=== PATIENT | female | born 1960 | race Two or more races ===

== ENCOUNTER 2020-06-17 17:41 | Emergency (ER) | payer MEDICAID ==
[~2020-06-17] VITALS: Ht 154.9 cm; Wt 61.2 kg
[2020-06-17] MEDS ORDERED: Oxymetazoline 0.05% Na Spray 30ml NASAL ONE ×2 (17:45→17:48)
--- NOTE | 2020-06-17 18:25 | NUR ---
ED Nurse Note:pt. came from home with nose bleed, pt. is A/Ox4 ambulatory, blood sent to labs
[2020-06-17 18:39] VITALS: BP 180/100
[2020-06-17] MEDS ORDERED: AMOXICILLIN500 MG ORAL (18:49)
[2020-06-17 18:55] LABS: BASOPHILS % (AUTO) 1.5 % (0.0-2.0); EOSINOPHILS % (AUTO) 3.2 % (0.0-3.0); HEMATOCRIT 41.3 % (37.0-47.0); HEMOGLOBIN 13.8 G/DL (12.0-16.0); LYMPHOCYTES % (AUTO) 22.6 % (20.0-45.0); MEAN CORPUSCULAR VOLUME 89 FL (80-99); MONOCYTES % (AUTO) 6.8 % (1.0-10.0); NEUTROPHILS % (AUTO) 65.9 % (45.0-75.0); PLATELET COUNT 223 K/UL (150-450); RED BLOOD COUNT 4.62 M/UL (4.20-5.40); RED CELL DISTRIBUTION WIDTH 12.5 % (11.6-14.8); WHITE BLOOD COUNT 6.9 K/UL (4.8-10.8)
[2020-06-17 18:58] LABS: CALCIUM 8.8 MG/DL (8.5-10.1)
[2020-06-17 19:03] LABS: ALBUMIN 3.9 G/DL (3.4-5.0); ALBUMIN/GLOBULIN RATIO 0.9 (1.0-2.7); BILIRUBIN,TOTAL 0.4 MG/DL (0.2-1.0)
--- NOTE | 2020-06-17 19:07 | NUR ---
HAND-OFF: Report given to Rivas.
--- NOTE | 2020-06-17 19:20 | NUR ---
PT RECEIVED AND REPORT FROM DAY RN NO FURTHER NOSE BLEEDING AOX4 RESP EVEN
--- NOTE | 2020-06-17 20:08 | NUR ---
DR DEE TO EXAM
[2020-06-17 21:08] VITALS: BP 128/88
--- NOTE | 2020-06-18 14:24 | Emergency Room Report ---
History of Present Illness General Chief Complaint: Nosebleed Source: Patient, EMS Present Illness HPI Patient is a 59-year-old female presents for increased nosebleed. Increased bleeding from the left nare. Onset of symptoms approximate 1 hour prior to arrival. Had not been having any recent fever. Episodic nosebleeds in the past. Reports having attempted to clean her nose prior to onset of bleeding. P rior history of hypertension. Does not take anticoagulation. Allergies: Coded Allergies: No Known Allergies (Unverified , 06/17/20) COVID-19 Screening Contact w/high risk pt: No Experienced COVID-19 symptoms?: No COVID-19 Testing performed VEGETABLE II FARMWORKER: No Patient History Past Medical History: see triage record Reviewed Nursing Documentation: PMH: Agreed; PSxH: Agreed Nursing Documentation-PMH Hx Cardiac Problems: Yes Hx Hypertension: Yes Review of Systems All Other Systems: negative except mentioned in HPI Physical Exam Vital Signs Date Time Temp Pulse Resp B/P (MAP) Pulse Ox O2 Delivery O2 Flow Rate FiO2 06/17/20 17:33 97.7 88 19 180/100 (126) 99 Room Air Sp02 EP Interpretation: reviewed, normal General Appearance: normal inspection, well appearing, no apparent distress, alert, GCS 15, non-toxic Head: atraumatic ENT: hearing grossly normal, normal voice, other - Bleeding from left anterior nasal septum. Neck: normal inspection, full range of motion, supple, no bony tend Respiratory: normal inspection, lungs clear, normal breath sounds, no respiratory distress, no retraction, no wheezing Cardiovascular #1: regular rate, rhythm, no edema Gastrointestinal: normal inspection, normal bowel sounds, non tender, soft, no guarding, no hernia Genitourinary: no CVA tenderness Musculoskeletal: normal inspection, back normal, normal range of motion Neurologic: alert, motor strength/tone normal, sales store checker III-XII nml as tested, oriented x3, responsive, speech normal, normal inspection Psychiatric: normal inspection, judgement/insight normal, mood/affect normal Medical Decision Making Diagnostic Impression: Primary Impression: Epistaxis ER Course Patient presented for epistaxis. Differential diagnosis includes not limited to anterior epistaxis, posterior epistaxis, coagulopathy, anemia among others. Because of complexity of patient's case laboratory tests and imaging studies were ordered. Patient was noted to have persistent epistaxis despite compression. Afrin was instilled to the left nare. A 7 cm nasal packing was placed in the left nare. Throughout course bleeding resolved. Patient was advised to have packing removed in 2 days. She is advised to return to the emergency department if she cannot be seen by her primary care physician. The patient was given IV fluids and was noted to have stable vital signs. This medical record is generated with [employer] park keeper software. There may be some park keeper discrepancies related to use of this software Labs Test 06/17/20 18:05 White Blood Count 6.9 K/UL (4.8-10.8) Red Blood Count 4.62 M/UL (4.20-5.40) Hemoglobin 13.8 G/DL (12.0-16.0) Hematocrit 41.3 % (37.0-47.0) Mean Corpuscular Volume 89 FL (80-99) Mean Corpuscular Hemoglobin 30.0 PG (27.0-31.0) Mean Corpuscular Hemoglobin Concent 33.5 G/DL (32.0-36.0) Red Cell Distribution Width 12.5 % (11.6-14.8) Platelet Count 223 K/UL (150-450) Mean Platelet Volume 9.0 FL (6.5-10.1) Neutrophils (%) (Auto) 65.9 % (45.0-75.0) Lymphocytes (%) (Auto) 22.6 % (20.0-45.0) Monocytes (%) (Auto) 6.8 % (1.0-10.0) Eosinophils (%) (Auto) 3.2 % (0.0-3.0) Basophils (%) (Auto) 1.5 % (0.0-2.0) Prothrombin Time 10.7 SEC (9.30-11.50) Prothromb Time International Ratio 1.0 (0.9-1.1) Activated Partial Thromboplast Time 27 SEC (23-33) Sodium Level 140 MMOL/L (136-145) Potassium Level 3.0 MMOL/L (3.5-5.1) Chloride Level 103 MMOL/L (98-107) Carbon Dioxide Level 28 MMOL/L (21-32) Anion Gap 9 mmol/L (5-15) Blood Urea Nitrogen 16 mg/dL (7-18) Creatinine 1.0 MG/DL (0.55-1.30) Estimat Glomerular Filtration Rate 56.8 mL/min (>60) Glucose Level 156 MG/DL (74-106) Calcium Level 8.8 MG/DL (8.5-10.1) Total Bilirubin 0.4 MG/DL (0.2-1.0) Aspartate Amino Transf (AST/SGOT) 24 U/L (15-37) Alanine Aminotransferase (ALT/SGPT) 35 U/L (12-78) Alkaline Phosphatase 82 U/L (46-116) Total Protein 8.1 G/DL (6.4-8.2) Albumin 3.9 G/DL (3.4-5.0) Globulin 4.2 g/dL Albumin/Globulin Ratio 0.9 (1.0-2.7) Last Vital Signs Date Time Temp Pulse Resp B/P (MAP) Pulse Ox O2 Delivery O2 Flow Rate FiO2 06/17/20 21:08 98.0 78 18 128/88 97 Room Air Status: improved Disposition: HOME, SELF-CARE Condition: Stable Scripts Amoxicillin* (AMOXIL*) 500 Mg Capsule 500 MG ORAL THREE TIMES A DAY, #21 CAP Prov: Bacilio Putnam MD 06/17/20 Referrals: [facility],REFERRING (PCP) Patient Instructions: Nosebleed, [id number] Additional Instructions: Return if bleeding, fever or any other concerns. Have packing removed in 2 days. Bacilio Putnam MD Jun 18, 2020 14:24
== END 2020-06-17 21:10 | disposition home or self-care (01) ==
LOC: EDBD 17:41 → EMR 18:19
DX: R04.0 Epistaxis (principal); I10 Essential (primary) hypertension; I51.9 Heart disease, unspecified
CPT/HCPCS: 30901; 36415; 80053; 85025; 85610; 85730; J7040; Z7502; 99283

== ENCOUNTER 2020-06-19 19:31 | Emergency (ER) | payer MEDICAID ==
[~2020-06-19] VITALS: Ht 170.2 cm; Wt 83.9 kg
[~2020-06-19 19:31] MED LIST: AMOXICILLIN500 MG ORAL
[2020-06-19 19:50] VITALS: BP 150/92
--- NOTE | 2020-06-19 19:50 | NUR ---
ED Nurse Note: Patient walked into ED from home for rhino rocket removal that was placed in L nostril on . She reports 5/10 pain in nostril. She denies any new bleeding. ERMD bedside and removed rhino rocket without complication. She is breathing normal, aaox4.
--- NOTE | 2020-06-19 19:53 | Emergency Room Report ---
History of Present Illness General Chief Complaint: Wound Recheck/Suture Removal Source: Patient Present Illness HPI The patient had a Rhino Rocket placed 2 days ago for epistaxis. She is presented 1 time before with this problem but did not need packing. She is complaining about aching pain in the nostril and nose on the left-hand side. She rates this pain 5/10. She denies any further bleeding. She is taking antibiotics at this time that were prescribed. She denies fevers or chills. There is no headache. She did not take any medication for the pain. The patient denies exposure to Covid positive contacts. The patient denies hypertension, bleeding disorders or anticoagulants. Allergies: Coded Allergies: No Known Allergies (Unverified , 06/17/20) COVID-19 Screening Contact w/high risk pt: No Experienced COVID-19 symptoms?: No COVID-19 Testing performed EMPLOYEE BENEFITS SPECIALIST: No Patient History Social History: Denies: smoking Social History Narrative Reviewed Nursing Documentation: PMH: Agreed; PSxH: Agreed Nursing Documentation-PMH Past Medical History: No History, Except For Hx Cardiac Problems: Yes Hx Hypertension: Yes Review of Systems Constitutional: Reports: see HPI ENT: Reports: see HPI Neurological: Reports: see HPI Hematologic/Lymphatic: Reports: see HPI Physical Exam Vital Signs Date Time Temp Pulse Resp B/P (MAP) Pulse Ox O2 Delivery O2 Flow Rate FiO2 06/19/20 19:36 97.0 74 17 150/92 (111) 98 Room Air Sp02 EP Interpretation: reviewed, normal General Appearance: well appearing, no apparent distress, GCS 15 Head: normocephalic Eyes: bilateral eye normal inspection, bilateral eye PERRL ENT: moist mucus membranes, other - Rhino Rocket left nares no active bleeding Neck: normal inspection Respiratory: normal inspection Cardiovascular #1: regular rate, rhythm Cardiovascular #2: 2+ radial (R) Gastrointestinal: normal inspection Musculoskeletal: gait/station normal Neurologic: alert, grossly normal Psychiatric: mood/affect normal Skin: normal color, warm/dry Medical Decision Making Diagnostic Impression: Primary Impression: Epistaxis re-evaluation ER Course Patient presents after epistaxis for Rhino Rocket removal. No evidence of act ashlee bleeding at this time. Tylenol administered for pain. Rhinorocket removed at 1950 Patient reexamined. No active bleeding. No lesions seen. Discussed treatment plan with patient. Discussed also means to control bleeding if it does occur. Also discussed humidification. Pain is improved. Patient stable for outpatient observation and treatment. Last Vital Signs Date Time Temp Pulse Resp B/P (MAP) Pulse Ox O2 Delivery O2 Flow Rate FiO2 06/19/20 20:15 97.2 71 18 142/85 100 Room Air Status: improved Disposition: HOME, SELF-CARE Condition: Improved Tommy Du MD Jun 19, 2020 19:52
[2020-06-19] MEDS ORDERED: Acetaminophen 500mg (ES) tab ORAL ONE (20:00)
--- NOTE | 2020-06-19 20:10 | NUR ---
ED Nurse Note: No active bleeding from nostril since rhino rocket removal. ERMD bedside.
[2020-06-19 20:15] VITALS: BP 142/85
--- NOTE | 2020-06-19 20:15 | NUR ---
ER DISCHARGE NOTE: Patient is cleared to be discharged per ERMD, pt is aox4, on room air, with stable vital signs. pt was given dc instructions, pt was able to verbalize understanding, pt id band removed. pt is able to ambulate with steady gait. pt took all belongings.
== END 2020-06-19 20:15 | disposition home or self-care (01) ==
LOC: EMR 20:04
DX: Z46.89 Encounter for fitting and adjustment of other specified devices (principal); I11.9 Hypertensive heart disease without heart failure; Z87.09 Personal history of other diseases of the respiratory system
CPT/HCPCS: 99282